=== PATIENT | male | born 1960 | race Caucasian/White ===

== ENCOUNTER → 2018-07-25 | Outpatient (CLI) | payer OTHER ==
[~2018-07-25] VITALS: Ht 175.3 cm; Wt 115.7 kg
[~2018-07-25] MED LIST: FISH OIL 1,001000 M2 PO; LUTEIN40 MG PO
--- NOTE | 2018-07-26 16:05 | PATH ---
[facility] [address] [place] [address] PATHOLOGY RPT PROCEDURE Name: ERIKA COHEN [facility] [id number] ������������������ Admission: 07/25/18 ������������������ Date of : 62 Discharge: Report #: [id number] Path Case #: [id number] [facility] Accession Number: [id number] . 01 Material submitted: . colon - POLYP AT SIGMOID COLON . 01 Clinical history: . Family history colon cancer Colon polyp, diverticulosis . 02 Diagnosis: Polyp, at sigmoid colon, endoscopic biopsy: - Hyperplastic polyp. - Negative for dysplasia. 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 02 Electronically signed: . Nury Boyd MD, Pathologist NPI- [id number] . 01 Gross description: . The specimen is received in formalin, labeled "Erika Cohen, polyp at sigmoid colon" and consists of 2 fragments of pink-galvan tissue measuring 0.4 x 0.4 x 0.2 cm and 0.7 x 0.4 x 0.2 cm. The larger is inked and bisected. They are entirely submitted in A1. (SDY; 07/25/2018) SYU/SYU . 02 Pathologist provided ICD-10: K63.5, Z80.0 . 02 CPT . 022717 Specimen Comment: A courtesy copy of this report has been sent to Specimen Comment: [phone], . Specimen Comment: Report sent to / DR HENSON Performed at: [address], [place], [place] [id number] MD Edvin Clemente MD Phone: [phone] Performed at: [address] [id number] MD Nury Boyd MD Phone: [phone]
--- NOTE | 2018-07-30 14:38 | P ---
[facility] [place] [address] PROCEDURE REPORT Name: NOELERIKA Jordan Room [facility] [id number] Admission: 07/25/18 ������������������ Attend Phys: Sid Mane Discharge: ������������������ Date of : 62 Report #: [id number] THIS REPORT FOR: //name// CC: Sid Tenorio MD DATE OF SERVICE: 07/25/2018 PROCEDURE PERFORMED: Colonoscopy with polypectomy. HISTORY OF PRESENT ILLNESS: The patient is a 58-year-old male who presents today for routine followup colonoscopy, history of polyps and a family history of colon cancer in his father. His last colonoscopy was approximately 6 years ago. He denies any symptoms at this time. Plan is for colonoscopy. DESCRIPTION OF PROCEDURE: The risks and benefits of the procedure were explained to the patient, those risks including but not limited to bleeding, perforation and the risk of sedation. He understood these risks and gave informed consent. Sedation was given using propofol per anesthesia. Next, a digital rectal exam was initially performed, which was normal. Next, using a standard Olympus colonoscope, the scope was placed in the patient's anus and advanced under direct vision to the cecum. The overall prep was excellent. The cecum and ileocecal valve were normal in appearance. The ascending, transverse and descending colon were normal. In the sigmoid colon, multiple diverticula were noted. Also noted was a 6 mm sessile polyp. This was removed by snare cautery. The rectal mucosa was normal. On retroflexion, small nonbleeding internal hemorrhoids were noted. The scope was then withdrawn and the procedure terminated. The patient tolerated the procedure well. IMPRESSION: 1. Sigmoid diverticulosis. 2. Sigmoid colon polyp. 3. Internal hemorrhoids. 4. Otherwise, normal colonoscopy. RECOMMENDATIONS: 1. Await biopsy results. 2. Repeat colonoscopy in 5 years. Thank you for allowing me to participate in his care. ��������������������������������������������� <ELECTRONICALLY SIGNED> ���������������������������������������� By: Sid Henry MD ��������������������������������������������� 07/30/18 1438 [id number] 15 Sid Henry MD /nt
== END | disposition home or self-care (01) ==
LOC: GI 08:08
DX: Z12.11 Encounter for screening for malignant neoplasm of colon (principal); Z86.010 Personal history of colon polyps; Z80.0 Family history of malignant neoplasm of digestive organs; K63.5 Polyp of colon; K57.30 Diverticulosis of large intestine without perforation or abscess without bleeding; K64.8 Other hemorrhoids; Z98.890 Other specified postprocedural states; Z79.899 Other long term (current) drug therapy
CPT/HCPCS: 62110; 62900